=== PATIENT | female | born 1995 | race Caucasian/White ===

== ENCOUNTER 2017-01-11 03:40 | Emergency (ER) | payer OTHER ==
[~2017-01-11] VITALS: Ht 149.9 cm; Wt 54.4 kg
[2017-01-11 03:42] VITALS: TEMP 98
[2017-01-11 04:41] VITALS: BP 120/70; PULSE 90
== END 2017-01-11 04:42 | disposition home or self-care (01) ==
LOC: COL.ER 03:40
DX: S93.602A Unspecified sprain of left foot, initial encounter (principal)